=== PATIENT | female | born 1990 | race African-American/Black ===

== ENCOUNTER 2017-03-25 09:38 | Emergency (ER) | payer OTHER ==
[~2017-03-25] VITALS: Ht 160 cm; Wt 56.0 kg
[~2017-03-25 09:38] MED LIST: CIPROFLOXACN500 MG PO; FERR SULFATE325 MG PO; FERROUS SULF325 M3 PO; IBUPROFEN600 MG PO; LORTAB 7.57.5 MG PO; NO HOME MEDS; NORCO1 TA1 PO; NORCO1 TA2 PO; OXYCODONE HCL5 MG PO; OXYCODONE5 M1 PO; PENICILLN VK500 MG PO; PHENERGAN SUP12.5 MG RE; PHENERGAN25 MG RE; PRENATA4 PO; PRENATAL1 TAB OR; ZOFRAN ODT4 MG PO
[2017-03-25] MEDS ORDERED: OXYCODONE HCL30 MG PO (10:53)
[2017-03-25] MEDS ORDERED: MOTRIN800 MG PO (10:53)
[2017-03-25 11:05] VITALS: BP 121/74
== END 2017-03-25 11:05 | disposition home or self-care (01) | DRG 552 ==
LOC: ED 09:38
DX: S16.1XXA Strain of muscle, fascia and tendon at neck level, initial encounter (principal); M54.5 Low back pain; V49.40XA Driver injured in collision with unspecified motor vehicles in traffic accident, initial encounter

== ENCOUNTER 2017-06-07 01:24 | Emergency (ER) | payer SELFPAY ==
[~2017-06-07] VITALS: Ht 160 cm; Wt 53.6 kg
[~2017-06-07 01:24] MED LIST changes: +MOTRIN800 MG PO; +OXYCODONE HCL30 MG PO
[2017-06-07 01:58] LABS: URINE BILIRUBIN - DIPSTICK NEGATIVE (NEGATIVE); URINE BLOOD DIPSTICK LARGE (NEGATIVE); URINE CLARITY SLIGHT CLOUDY; URINE COLOR YELLOW; URINE GLUCOSE - DIPSTICK NEGATIVE (NEGATIVE); URINE KETONE NEGATIVE (NEGATIVE); URINE LEUK ESTERASE TRACE (NEGATIVE); URINE NITRITE - DIPSTICK NEGATIVE (Negative); URINE PROTEIN - DIPSTICK NEGATIVE (NEG-TRACE); URINE SPECIFIC GRAVITY 1.015; URINE UROBILINOGEN - DIPSTICK 0.2 E.U./dL (0.2)
[2017-06-07 02:04] LABS: URINE BACTERIA FEW hpf; URINE MUCUS MODERATE hpf (NONE-FEW); URINE SQUAMOUS EPITHELIAL CELL MANY EPI/hpf (0-FEW)
[2017-06-07 02:07] LABS: HEMATOCRIT 31.8 % (37.0-47.0); HEMOGLOBIN 10.2 g/dl (12.0-16.0); IMMATURE GRANULOCYTES 0.4 % (0.0-1.0); MEAN CORPUSCULAR HGB 24.1 pG CALC (26.0-32.0); MEAN CORPUSCULAR HGB CONC 32.1 g/L CALC (32.0-36.0); NEUT# 3.95 thou/uL (2.00-7.15); RED BLOOD COUNT 4.24 mill/uL (4.20-5.60); RED CELL DISTRI WIDTH 18.2 % (11.5-15.5)
[2017-06-07 02:22] LABS: ALBUMIN 4.2 g/dL (3.2-5.0); ALKALINE PHOSPHATASE 60 u/l (38-126); ANION GAP 17 (6-22 (CALC)); BILIRUBIN, TOTAL 0.5 mg/dL (0.0-1.4); BUN 6 mg/dL (7-17); BUN/CREATININE RATIO 9 (12-20 (CALC)); CALCIUM 9.1 mg/dL (8.4-10.2); CARBON DIOXIDE 20 mmol/l (22-30); CHLORIDE 104 mmol/l (95-108); CREATININE 0.7 mg/dL (0.5-1.0); GFR > 60 ML/MIN (>=60 (CALC)); GFR FOR AFR.AMER. > 60 ML/MIN (>=60 (CALC)); GLUCOSE 107 mg/dL (65-105); POTASSIUM 3.4 mmol/l (3.5-5.1); SGOT/AST 22 u/l (14-36); SGPT/ALT 36 u/l (9-52); SODIUM 137 mmol/l (137-146); TOTAL PROTEIN 7.2 g/dL (6.3-8.2)
[2017-06-07 03:30] LABS: BARBITURATES NEGATIVE (NEGATIVE); COCAINE NEGATIVE (NEGATIVE); METHADONE NEGATIVE (NEGATIVE); TETRAHYDROCANNABIONOL POSITIVE (NEGATIVE); TRICYLIC ANTIDEPRESSANTS NEGATIVE (NEGATIVE)
[2017-06-07 03:31] LABS: OXCYCODONE NEGATIVE (NEGATIVE)
[2017-06-07] MEDS ORDERED: ULTRAM50 M1 PO ×2 (04:25→04:26)
[2017-06-07 04:43] VITALS: BP 110/63
== END 2017-06-07 04:42 | disposition home or self-care (01) | DRG 781 ==
LOC: ED 01:24
PROVIDERS: Emergency Medicine
DX: O26.899 Other specified pregnancy related conditions, unspecified trimester (principal); R10.30 Lower abdominal pain, unspecified

== ENCOUNTER 2018-01-15 19:50 | Emergency (ER) | payer SELFPAY ==
[~2018-01-15] VITALS: Ht 160 cm; Wt 53.6 kg
[~2018-01-15 19:50] MED LIST changes: +ULTRAM50 M1 PO
[2018-01-15 21:15] LABS: HEMATOCRIT 33.4 % (37.0-47.0); HEMOGLOBIN 10.4 g/dl (12.0-16.0); IMMATURE GRANULOCYTES 0.2 % (0.0-1.0); MEAN CELL VOLUME 74.9 fL CALC (80.0-100.0); MEAN CORPUSCULAR HGB 23.3 pG CALC (26.0-32.0); MEAN CORPUSCULAR HGB CONC 31.1 g/L CALC (32.0-36.0); NEUT# 2.36 thou/uL (2.00-7.15); RED BLOOD COUNT 4.46 mill/uL (4.20-5.60); RED CELL DISTRI WIDTH 18.8 % (11.5-15.5)
[2018-01-15 21:20] LABS: URINE BILIRUBIN - DIPSTICK NEGATIVE (NEGATIVE); URINE BLOOD DIPSTICK LARGE (NEGATIVE); URINE COLOR YELLOW; URINE GLUCOSE - DIPSTICK NEGATIVE (NEGATIVE); URINE KETONE NEGATIVE (NEGATIVE); URINE LEUK ESTERASE NEGATIVE (NEGATIVE); URINE NITRITE - DIPSTICK NEGATIVE (Negative); URINE PH 5.5 (4.5-8.0); URINE PROTEIN - DIPSTICK NEGATIVE (NEG-TRACE); URINE SPECIFIC GRAVITY <=1.005; URINE UROBILINOGEN - DIPSTICK 0.2 E.U./dL (0.2)
[2018-01-15 21:24] LABS: URINE CLARITY CLEAR
[2018-01-15 21:37] LABS: ALBUMIN 3.9 g/dL (3.2-5.0); ALKALINE PHOSPHATASE 61 u/l (38-126); ANION GAP 15 (6-22 (CALC)); BILIRUBIN, TOTAL 0.3 mg/dL (0.0-1.4); BUN 8 mg/dL (7-17); BUN/CREATININE RATIO 11 (12-20 (CALC)); CARBON DIOXIDE 21 mmol/l (22-30); CHLORIDE 108 mmol/l (95-108); CREATININE 0.7 mg/dL (0.5-1.0); GFR > 60 ML/MIN (>=60 (CALC)); GFR FOR AFR.AMER. > 60 ML/MIN (>=60 (CALC)); SGOT/AST 27 u/l (14-36); SGPT/ALT 43 u/l (9-52); SODIUM 141 mmol/l (137-146); TOTAL PROTEIN 7.3 g/dL (6.3-8.2)
[2018-01-15 21:46] LABS: URINE RBC TNTC RBC/hpf (0-5); URINE SQUAMOUS EPITHELIAL CELL FEW EPI/hpf (0-FEW)
[2018-01-15] MEDS ORDERED: ZOFRAN ODT4 MG PO (22:25)
[2018-01-15] MEDS ORDERED: ULTRAM50 M1 PO (22:25)
[2018-01-15 22:40] VITALS: BP 110/70
== END 2018-01-15 22:46 | disposition home or self-care (01) | DRG 761 ==
LOC: ED 19:50
PROVIDERS: Emergency Medicine
DX: N93.8 Other specified abnormal uterine and vaginal bleeding (principal); R10.2 Pelvic and perineal pain; R20.0 Anesthesia of skin

== ENCOUNTER 2018-03-28 14:30 | Emergency (ER) | payer OTHER ==
[~2018-03-28] VITALS: Ht 160 cm; Wt 60.0 kg
[2018-03-28] MEDS ORDERED: OXYCODONE30 MG PO (15:53)
[2018-03-28] MEDS ORDERED: TORADOL PO (15:54)
[2018-03-28] MEDS ORDERED: FLEXERIL PO (15:54)
[2018-03-28 16:00] VITALS: BP 127/70
== END 2018-03-28 16:00 | disposition home or self-care (01) | DRG 563 ==
LOC: ED 14:30
DX: S46.911A Strain of unspecified muscle, fascia and tendon at shoulder and upper arm level, right arm, initial encounter (principal); S39.012A Strain of muscle, fascia and tendon of lower back, initial encounter; M25.511 Pain in right shoulder; V43.02XA Car driver injured in collision with other type car in nontraffic accident, initial encounter; Y92.414 Local residential or business street as the place of occurrence of the external cause; Y93.89 Activity, other specified

== ENCOUNTER 2018-05-21 21:56 | Emergency (ER) | payer OTHER ==
[~2018-05-21] VITALS: Ht 160 cm; Wt 54.1 kg
[~2018-05-21 21:56] MED LIST changes: +FLEXERIL PO; +OXYCODONE30 MG PO; +TORADOL PO
[2018-05-21 22:26] LABS: HEMOGLOBIN 10.7 g/dl (12.0-16.0); IMMATURE GRANULOCYTES 0.1 % (0.0-5.0); MEAN CELL VOLUME 73.7 fL CALC (80.0-100.0); MEAN CORPUSCULAR HGB 23.9 pG CALC (26.0-32.0); MEAN CORPUSCULAR HGB CONC 32.4 g/L CALC (32.0-36.0); NEUT# 2.67 thou/uL (2.00-7.15); RED BLOOD COUNT 4.48 mill/uL (4.20-5.60); RED CELL DISTRI WIDTH 19.1 % (11.5-15.5)
[2018-05-21 22:39] LABS: URINE BILIRUBIN - DIPSTICK NEGATIVE (NEGATIVE); URINE BLOOD DIPSTICK NEGATIVE (NEGATIVE); URINE COLOR YELLOW; URINE GLUCOSE - DIPSTICK NEGATIVE (NEGATIVE); URINE KETONE NEGATIVE (NEGATIVE); URINE LEUK ESTERASE TRACE (NEGATIVE); URINE NITRITE - DIPSTICK NEGATIVE (Negative); URINE PROTEIN - DIPSTICK NEGATIVE (NEG-TRACE); URINE SPECIFIC GRAVITY <=1.005; URINE UROBILINOGEN - DIPSTICK 0.2 E.U./dL (0.2)
[2018-05-21 22:39] LABS: ALKALINE PHOSPHATASE 53 u/l (38-126); ANION GAP 18 (6-22 (CALC)); BILIRUBIN, TOTAL 0.5 mg/dL (0.0-1.4); BUN 5 mg/dL (7-17); BUN/CREATININE RATIO 8 (12-20 (CALC)); CARBON DIOXIDE 18 mmol/l (22-30); CHLORIDE 98 mmol/l (95-108); CREATININE 0.6 mg/dL (0.5-1.0); GFR > 60 ML/MIN (>=60 (CALC)); GFR FOR AFR.AMER. > 60 ML/MIN (>=60 (CALC)); POTASSIUM 3.7 mmol/l (3.5-5.1); SGOT/AST 45 u/l (14-36); SODIUM 130 mmol/l (137-146); TOTAL PROTEIN 7.2 g/dL (6.3-8.2)
[2018-05-21 22:45] LABS: BARBITURATES NEGATIVE (NEGATIVE); COCAINE NEGATIVE (NEGATIVE); METHADONE NEGATIVE (NEGATIVE); OXCYCODONE NEGATIVE (NEGATIVE); TETRAHYDROCANNABIONOL NEGATIVE (NEGATIVE); TRICYLIC ANTIDEPRESSANTS NEGATIVE (NEGATIVE); URINE CLARITY SL CLOUDY
[2018-05-21] MEDS ORDERED: ATIVAN0.5 MG PO (23:05)
[2018-05-21 23:30] VITALS: BP 106/70
== END 2018-05-21 23:30 | disposition home or self-care (01) ==
LOC: ED 21:56
PROVIDERS: Emergency Medicine
DX: F41.9 Anxiety disorder, unspecified (principal)
CPT/HCPCS: J2060

== ENCOUNTER 2018-07-23 08:00 | Emergency (ER) | payer OTHER ==
[~2018-07-23] VITALS: Ht 160 cm; Wt 55.0 kg
[~2018-07-23 08:00] MED LIST changes: +ATIVAN0.5 MG PO
[2018-07-23 08:58] LABS: INFLUENZA B NONE DETECTED (NONE DETECT)
[2018-07-23] MEDS ORDERED: AMOXICILLIN500 M2 PO (09:03)
[2018-07-23 09:06] VITALS: BP 104/52
== END 2018-07-23 09:22 | disposition home or self-care (01) ==
LOC: ED 08:00
PROVIDERS: Family Medicine
DX: J02.0 Streptococcal pharyngitis (principal); R05 Cough; R50.9 Fever, unspecified; J02.9 Acute pharyngitis, unspecified

== ENCOUNTER 2019-09-11 | Emergency (ER) | payer OTHER ==
[~2019-09-11] MED LIST changes: +AMOXICILLIN500 M2 PO
[2019-09-11] MEDS ORDERED: OXYCODONE30 MG PO (10:07)
[2019-09-11] MEDS ORDERED: ORPHENADRINE100 MG PO (13:10)
[2019-09-11] MEDS ORDERED: TORADOL PO (13:10)
== END 2019-09-11 13:53 | disposition home or self-care (01) | DRG 563 ==
DX: S39.012A Strain of muscle, fascia and tendon of lower back, initial encounter (principal); S16.1XXA Strain of muscle, fascia and tendon at neck level, initial encounter; M25.561 Pain in right knee; V43.63XA Car passenger injured in collision with pick-up truck in traffic accident, initial encounter

== ENCOUNTER 2020-01-20 22:52 | Emergency (ER) | payer OTHER ==
[~2020-01-20 22:52] MED LIST changes: +ORPHENADRINE100 MG PO
[2020-01-21 01:56] LABS: HCG SERUM/URINE (NEG/POS) NEGATIVE (NEGATIVE)
[2020-01-21] MEDS ORDERED: TRAMADOL HYDROC50 MG PO (02:40)
[2020-01-21 04:45] VITALS: BP 101/78
== END 2020-01-21 04:45 | disposition home or self-care (01) ==
LOC: ED 22:52
DX: S43.014A Anterior dislocation of right humerus, initial encounter (principal); X50.0XXA Overexertion from strenuous movement or load, initial encounter; Y93.89 Activity, other specified; Z11.59 Encounter for screening for other viral diseases

== ENCOUNTER 2021-09-23 09:58 | Emergency (ER) | payer OTHER ==
[~2021-09-23] VITALS: Ht 160 cm; Wt 68.0 kg
[~2021-09-23 09:58] MED LIST changes: +TRAMADOL HYDROC50 MG PO
[2021-09-23 12:06] LABS: HEMATOCRIT 33.1 % (37.0-47.0); HEMOGLOBIN 10.5 g/dl (12.0-16.0); IMMATURE GRANULOCYTES 0.2 % (0.0-5.0); MEAN CORPUSCULAR HGB 23.5 pG CALC (26.0-32.0); MEAN CORPUSCULAR HGB CONC 31.7 g/dL CAL (32.0-36.0); NEUT# 3.22 thou/uL (2.00-7.15); RED BLOOD COUNT 4.47 mill/uL (4.20-5.60); RED CELL DISTRI WIDTH 19.6 % (11.5-15.5)
[2021-09-23 12:19] LABS: ANION GAP 12 (6-22 (CALC)); BUN 2 mg/dL (7-17); BUN/CREATININE RATIO 3 (12-20 (CALC)); CARBON DIOXIDE 21 mmol/l (22-30); CHLORIDE 108 mmol/l (95-108); CREATININE 0.8 mg/dL (0.5-1.0); GFR > 60 ML/MIN (>=60 (CALC)); GFR FOR AFR.AMER. > 60 ML/MIN (>=60 (CALC)); POTASSIUM 3.7 mmol/l (3.5-5.1); SODIUM 137 mmol/l (137-146)
[2021-09-23 13:50] VITALS: BP 110/50
== END 2021-09-23 13:50 | disposition home or self-care (01) ==
LOC: ED 09:58
PROVIDERS: Family Medicine
DX: U07.1 COVID-19 (principal); D64.9 Anemia, unspecified

== ENCOUNTER 2021-11-05 15:45 | Emergency (ER) | payer OTHER, MEDICARE ==
[~2021-11-05] VITALS: Ht 160 cm; Wt 64.0 kg
[2021-11-05] MEDS ORDERED: HYDROCO/APAP1 TA9 PO (18:26)
[2021-11-05 19:00] VITALS: BP 99/72
== END 2021-11-05 19:00 | disposition home or self-care (01) | DRG 552 ==
LOC: ED 15:45
DX: M54.50 Low back pain, unspecified (principal); V43.52XA Car driver injured in collision with other type car in traffic accident, initial encounter

== ENCOUNTER 2022-08-28 08:53 | Emergency (ER) | payer MEDICARE, OTHER ==
[~2022-08-28] VITALS: Ht 160 cm; Wt 60.0 kg
[~2022-08-28 08:53] MED LIST changes: +HYDROCO/APAP1 TA9 PO
[2022-08-28 09:41] LABS: BASO% 0.8 % (0-3); EOS% 2.1 % (0-8); HEMATOCRIT 36.3 % (37.0-47.0); HEMOGLOBIN 11.9 g/dl (12.0-16.0); LYMPH% 46.8 % (15-41); MEAN CORPUSCULAR HGB 26.7 pG CALC (26.0-32.0); MEAN CORPUSCULAR HGB CONC 32.8 g/dL CAL (32.0-36.0); MONO% 7.7 % (2-13); NEUT# 1.61 thou/uL (2.00-7.15); NEUT% 42.6 % (42-76); RED BLOOD COUNT 4.46 mill/uL (4.20-5.60); RED CELL DISTRI WIDTH 16.9 % (11.5-15.5)
[2022-08-28 09:42] LABS: MEAN CELL VOLUME 81.4 fL CALC (80.0-100.0)
[2022-08-28 09:54] LABS: ALKALINE PHOSPHATASE 57 u/l (38-126); ANION GAP 8 (6-22 (CALC)); BILIRUBIN, TOTAL 0.2 mg/dL (0.0-1.4); BUN 9 mg/dL (7-17); BUN/CREATININE RATIO 10 (12-20 (CALC)); CARBON DIOXIDE 26 mmol/l (22-30); CHLORIDE 110 mmol/l (95-108); CREATININE 0.8 mg/dL (0.5-1.0); GFR FOR AFR.AMER. > 60 ML/MIN (>=60 (CALC)); GFR OTHER RACES > 60 ML/MIN (>=60 (CALC)); POTASSIUM 4.1 mmol/l (3.5-5.1); SGOT/AST 22 u/l (14-36); SODIUM 140 mmol/l (137-146); TOTAL PROTEIN 7.3 g/dL (6.3-8.2)
[2022-08-28 10:16] VITALS: BP 102/75
== END 2022-08-28 10:26 | disposition home or self-care (01) ==
LOC: ED 08:53
PROVIDERS: Family Medicine
DX: N93.9 Abnormal uterine and vaginal bleeding, unspecified (principal)